=== PATIENT | male | born 1980 | race Caucasian/White ===

== ENCOUNTER 2021-03-17 10:37 | Emergency (ER) | payer OTHER ==
[~2021-03-17] VITALS: Ht 175.3 cm; Wt 93.6 kg
[2021-03-17 10:58] VITALS: BP 151/92
== END 2021-03-17 11:53 ==
LOC: EMS 10:37
DX: F11.23 Opioid dependence with withdrawal (principal); Z88.8 Allergy status to other drugs, medicaments and biological substances
CPT/HCPCS: 99283